=== PATIENT | female | born 1965 | race Hispanic/Latino ===

== ENCOUNTER 2016-08-21 10:24 | Inpatient (IN) | payer OTHER ==
[2016-08-21 11:34] LABS: Basophils % (Auto) 0.5 % (0.0-1.8); Eosinophils % (Auto) 0.1 % (0.0-4.3); Hematocrit 44.5 % (30.3-42.9); Hemoglobin 15.3 gm/dl (10.1-14.3); Mean Corpuscular HGB Conc 35 % (30-34); Mean Corpuscular Hemoglobin 34 pg (28-32); Mean Corpuscular Volume 99 fl (79-97); Platelet Count 248 K/mm3 (140-440); Red Blood Count 4.47 M/mm3 (3.65-5.03); Red Cell Distribution Width 14.5 % (13.2-15.2); White Blood Count 10.2 K/mm3 (4.5-11.0)
[2016-08-21 11:38] LABS: Anion Gap 24 mmol/L; Blood Urea Nitrogen 11 mg/dL (7-17); Calcium 8.9 mg/dL (8.4-10.2); Carbon Dioxide 22 mmol/L (22-30); Chloride 98.3 mmol/L (98-107); Glucose 143 mg/dL (65-100); Potassium 3.7 mmol/L (3.6-5.0); Sodium 141 mmol/L (137-145)
[2016-08-21] MEDS ORDERED: MORPHINE ONE (12:19)
[2016-08-21] MEDS ORDERED: ZOFRAN IV ONE (12:22)
[2016-08-21] MEDS ORDERED: MORPHINE IV ONE ×2 (12:23→16:50)
[2016-08-21] MEDS ORDERED: NACL ONE (12:23)
--- NOTE | 2016-08-21 12:53 | Cat Scan Report ---
CT SCAN OF THE ABDOMEN AND PELVIS WITH CONTRAST: HISTORY: Severe abdominal pain. COMPARISON: 07/28/15. TECHNIQUE: Helical CT in 1.25mm intervals following IV contrast. Sagittal and coronal reconstructions. FINDINGS: The liver is normal in size and contour. Approximate 1 cm right hepatic lobe hemangioma or cyst is unchanged. No gallstones or biliary dilatation are noted. The spleen and pancreas demonstrate a normal size and attenuation with no evidence of abnormal mass. The kidneys are normal in size and position with no evidence of hydronephrosis or mass. The adrenal glands are normal. The abdominal aorta is normal. There are a few borderline dilated and fluid filled loops of small bowel in the left abdomen. There is suggestion of a transition point along the anterior abdominal wall near the umbilicus. This could represent an adhesion. The remaining bowel loops are unremarkable. The appendix is not confidently identified. A left ovarian cyst measures 2.3 cm. The uterus and right ovary are unremarkable. There is no evidence of peritoneal air or fluid. There is no evidence of any abnormal masses or fluid collections within the pelvis. No adenopathy is identified. The bladder is normal. IMPRESSION: Finding suggestive of a low grade partial small bowel obstruction. Please correlate with the patient's clinical presentation. 2.3 cm left ovarian cyst.
[2016-08-21 13:00] LABS: Bilirubin,Urine NEG (Negative); Blood,Urine SM (Negative); Ketones,Urine 80 mg/dL (Negative); Leukocyte Esterase,Urine NEG (Negative); Mucus,Urine FEW /HPF; Nitrite,Urine NEG (Negative); Urobilinogen,Urine < 2.0 mg/dL (<2.0)
--- NOTE | 2016-08-21 13:53 | Admit Criteria Form ---
Admission Criteria Documentation: INTESTINAL OBSTRUCTION Clinical Indications for Admission to Inpatient Care (Place 'X' for any and all applicable criteria): Admission is indicated for ANY ONE of the following (1)(2)(3)(4)(5): [X]I. Partial bowel obstruction [ ]II. Complete bowel obstruction Extended stay beyond goal length of stay may be needed for(1)(4)(12(: [ ]a) Identified etiology (eg, hernia, volvulus, cancer with obstruction) requiring intervention [ ]b) Gallstone ileus [ ]c) Surgical intervention [ ]d) Acute comorbid illness (eg, electrolyte imbalance, hypovolemia, renal failure) The original [employer] content created by [employer] has been revised. The portions of the content which have been revised are identified through the use of italic text or in bold, and [facility] has neither reviewed nor approved the modified material. All other unmodified content is copyright [employer]. Please see references footnoted in the original [employer] edition 2016 Admission Criteria Met: Yes
[2016-08-21 14:54] LABS: Bacteria,Urine 1+ /HPF (Negative)
--- NOTE | 2016-08-21 15:01 | Emergency Department Report ---
ED Abdominal Pain HPI - General Chief Complaint: Abdominal Pain Stated Complaint: LT SIDE ABD PAIN Time Seen by Provider: 08/21/16 14:20 Source: patient, EMS, RN notes reviewed Mode of arrival: Ambulatory Limitations: No Limitations - History of Present Illness Initial Comments: 51-year-old female presents to the emergency department complaining of abdominal pain. Patient reports the acute onset of left-sided abdominal pain that awoke her from sleep at 3:00 this morning. Patient reports pain as twisting and a throbbing pain. Pain has been constant. She reports radiation of the pain towards the center of her abdomen. She also reports nausea and vomiting. There are no other complaints. MD Complaint: abdominal pain -: Sudden, During the night Time: 03:00 Location: [facility] Radiation: other (periumbilical) Migration to: no migration Severity: moderate Severity scale (0 -10): 5 Quality: other (twisting, throbbing) Consistency: constant Improves With: nothing Worsens With: nothing Associated Symptoms: nausea, vomiting - Related Data Home Medications Medication Instructions Recorded Confirmed Last Taken Citalopram [celeXA] 20 mg PO QDAY 07/28/15 08/21/16 07/27/15 Lisinopril/Hydrochlorothiazide 1 tab PO QDAY 07/28/15 08/21/16 07/27/15 [Zestoretic 20-25 mg] Allergies Allergy/AdvReac Type Severity Reaction Status Date / Time Penicillins Allergy Unknown Verified 07/28/15 02:57 Sulfa (Sulfonamide Allergy Unknown Verified 07/28/15 02:57 Antibiotics) ED Review of Systems ROS: Stated complaint: LT SIDE ABD PAIN Other details as noted in HPI Comment: All other systems reviewed and negative Gastrointestinal: abdominal pain, nausea, vomiting ED Past Medical Hx - Past Medical History Previous Medical History?: Yes Hx Hypertension: Yes Hx HIV: No Additional medical history: Perferated diverticulitis, abd. pain - Surgical History Past Surgical History?: Yes Additional Surgical History: colostomy and colostomy reversal - Family History Family history: no significant - Social History Smoking Status: Current Every Day Smoker Substance Use Type: Alcohol - Medications Home Medications: Home Medications Medication Instructions Recorded Confirmed Last Taken Type Citalopram [celeXA] 20 mg PO QDAY 07/28/15 08/21/16 07/27/15 History Lisinopril/Hydrochlorothiazide 1 tab PO QDAY 07/28/15 08/21/16 07/27/15 History [Zestoretic 20-25 mg] ED Physical Exam - General Limitations: No Limitations General appearance: alert, in no apparent distress - Head Head exam: Present: atraumatic, normocephalic - Eye Eye exam: Present: normal appearance, PERRL, EOMI - ENT ENT exam: Present: normal exam, normal orophraynx, mucous membranes moist - Neck Neck exam: Present: normal inspection, full ROM. Absent: tenderness - Respiratory Respiratory exam: Present: normal lung sounds bilaterally. Absent: respiratory distress - Cardiovascular Cardiovascular Exam: Present: regular rate, normal rhythm, normal heart sounds - GI/Abdominal GI/Abdominal exam: Present: soft, tenderness (mild tenderness to palpation of the left mid abdomen.), normal bowel sounds. Absent: distended, guarding, rebound - Extremities Exam Extremities exam: Present: normal inspection, full ROM. Absent: tenderness - Back Exam Back exam: Present: normal inspection, full ROM. Absent: tenderness - Neurological Exam Neurological exam: Present: alert, oriented X3. Absent: motor sensory deficit - Skin Skin exam: Present: warm, dry, intact ED Course Vital Signs 08/21/16 10:39 Temperature 98.1 F Pulse Rate 62 Respiratory 18 Rate Blood Pressure 192/92 O2 Sat by Pulse 100 Oximetry ED Medical Decision Making - Lab Data Result diagrams: 08/21/16 10:58 08/21/16 10:58 - Radiology Data Radiology results: report reviewed, image reviewed CT of the abdomen and pelvis reveals a partial small bowel obstruction with a transition point in the anterior abdomen near the umbilicus. - Medical Decision Making Lab and imaging results reviewed and discussed with the patient. Patient reports symptoms are somewhat improved with medication. Placing an NG tube. I have spoken with Dr. Milner, surgery. Patient is to be admitted by the hospitalist. - Differential Diagnosis abdominal pain, diverticulitis, obstruction Critical care attestation.: If time is entered above; I have spent that time in minutes in the direct care of this critically ill patient, excluding procedure time. ED Disposition Clinical Impression: Small bowel obstruction Disposition: OP ADMITTED IP TO THIS HOSP Is pt being admited?: Yes Condition: Stable Instructions: Abdominal Pain (ED) Referrals: PRIMARY CARE, [Primary Care Provider] - 3-5 Days Time of Disposition: 15:03
[2016-08-21] MEDS ORDERED: NACL 0.9% 1000 ML 1,000 ML IV ONE (15:51)
--- NOTE | 2016-08-21 18:16 | Event Note ---
Date: 08/21/16 See H/p in reports SBO HTN Depression/Anxiety Hx of Colostomy with reversal probably causing scar tissue and obstruction
[2016-08-21] MEDS ORDERED: CATAPRES-TTS PATCH TD SCH (18:30)
--- NOTE | 2016-08-21 18:56 | Consultation ---
History of Present Illness Consult date: 08/21/16 Reason for consult: abdominal pain Chief complaint: Abdominal pain. - History of present illness History of present illness: 51 years old female came to the hospital emergency room complaining of abdominal pain, nausea and vomiting. This started today about 3:00 in the morning. A CT of the abdomen showed small bowel obstruction. Past History Past Medical History: hypertension, other (had an episode of small bowel obstruction last year that resolved with conservative management.) Past Surgical History: bowel surgery (Carine's procedure for perforated diverticulitis and later takedown of colostomy.) Social history: no significant social history Medications and Allergies Allergies Allergy/AdvReac Type Severity Reaction Status Date / Time Penicillins Allergy Unknown Verified 07/28/15 02:57 Sulfa (Sulfonamide Allergy Unknown Verified 07/28/15 02:57 Antibiotics) Home Medications Medication Instructions Recorded Confirmed Last Taken Type Citalopram [celeXA] 20 mg PO QDAY 07/28/15 08/21/16 07/27/15 History Lisinopril/Hydrochlorothiazide 1 tab PO QDAY 07/28/15 08/21/16 07/27/15 History [Zestoretic 20-25 mg] Active Meds: Active Medications Clonidine HCl (Catapres-Tts Patch) 0.1 mg TD Tu OLVIN Hydromorphone HCl (Dilaudid) 1 mg IV Q3H PRN PRN Reason: Pain , Severe (7-10) Sodium Chloride (Nacl 0.9% 1000 Ml) 1,000 mls @ 125 mls/hr IV ONCE ONE Stop: 08/21/16 23:50 Last Admin: 08/21/16 16:49 Dose: 125 mls/hr Ondansetron HCl (Zofran) 4 mg IV NOW PRN PRN Reason: Nausea And Vomiting Review of Systems - Psychiatric depression Exam Vital Signs Temp Pulse Resp BP Pulse Ox 98.1 F 62 18 192/92 100 08/21/16 10:39 08/21/16 10:39 08/21/16 10:39 08/21/16 10:39 08/21/16 10:39 - General physical appearance Positive: well developed, well nourished, no distress - Eyes Positive: PERRL, normal occular movement - ENT Positive: normal pinna, normal nares, normal mucosa, no hearing loss, no congestion, other (NG in place through right nostril.) - Neck Positive: no masses, no bruits, trachea midline, no venous distension - Respiratory Positive: normal expansion, normal respiratory effort, clear to auscultation - Cardiovascular Rhythm: regular Heart Sounds: Present: S1 & S2 - Extremities Extremities: no ischemia Peripheral Pulses: within normal limits - Breasts Breasts: deferred - Abdomen Abdomen: Present: soft, bowel sounds normal Hernia: none - Genitourinary Female Genitourinary: normal - Integumentary no rash, no growths, no abnormal pigmentation - Neurologic Neurologic: alert and oriented to time, place and person, motor strength and sensation are grossly intact - Musculoskeletal normal gait, normal posture - Psychiatric Psychiatric: appropriate mood/affect, intact judgment & insight Results - Labs 08/21/16 10:58 08/21/16 10:58 - Imaging CT scan - pelvis: report reviewed, image reviewed US - abdomen: report reviewed, image reviewed Assessment and Plan Impression: #1. Small bowel obstruction. #2. Hypertension. Recommendations: Continue NG tube to low intermittent suction. Abdominal series in the morning. Repeat labs in the morning.
[2016-08-21] MEDS ORDERED: ZOFRAN IV PRN (18:57)
[2016-08-21] MEDS ORDERED: MILK OF MAGNESIA PO PRN (18:57)
[2016-08-21] MEDS ORDERED: TYLENOL PO PRN (18:57)
[2016-08-21] MEDS ORDERED: DULCOLAX PR PRN (19:07)
--- NOTE | 2016-08-21 19:53 | History and Physical Report ---
CHIEF COMPLAINT: Abdominal pain. HISTORY OF PRESENT ILLNESS: A 51-year-old female who comes to the Emergency Room complaining of left lower quadrant abdominal pain, radiation to the periumbilical region. The pain was sharp and about 10/10. Awoke her up from sleep around 3 a.m. in the morning. She also has nausea and vomiting. No exacerbating factors. Pain comes intermittently sharp and lasts for about few minutes. Crampy pain. The first episode. Throbbing pain. Nausea with vomiting x3-4 times. PAST MEDICAL HISTORY: Significant for hypertension, perforated diverticulitis in the past, abdominal pain, colostomy in the past. PAST SURGICAL HISTORY: Colostomy and colostomy reversal. FAMILY HISTORY: No hypertension. SOCIAL HISTORY: Current everyday smoker. Alcohol occasionally. CURRENT MEDICATIONS: Celexa 20 mg once a day, lisinopril/hydrochlorothiazide 20/25 daily. REVIEW OF SYSTEMS: CONSTITUTIONAL: No weight loss, no weight gain. No fever, no chills. HEENT: No sore throat. No postnasal drip. CVS AND RESPIRATORY: No shortness of breath, no chest pain, no palpitations. No cough, no wheezing, no sputum production. GI: As mentioned in history of present illness, left flank pain radiating to the periumbilical region, sharp in nature 10/10, associated with nausea and vomiting. GENITOURINARY: No dysuria, no flank pain. MUSCULOSKELETAL: No joint pains. No muscle pains. CENTRAL NERVOUS SYSTEM: No syncope, no seizures. No focal deficits. SKIN: No rashes. PSYCHIATRIC: No anxiety. No depression. HEMATOLOGIC AND LYMPHATIC: No lymphedema, no easy bruising. A 14-point review of systems was done. PHYSICAL EXAMINATION: GENERAL: Middle-aged female, cooperative during examination. VITAL SIGNS: Blood pressure is 121/51, temperature is 98.1, pulse is 77, respirations are 16, sats are 95% to 100%. HEENT: Unremarkable. Pupils equal and reactive. NECK: Supple, no lymphadenopathy, no thyromegaly. LUNGS: Clear to auscultation and percussion. Good air entry. CARDIOVASCULAR: S1, S2 heard. No gallop, no murmur, no rub. Apical impulse in left fifth intercostal space and midclavicular line. ABDOMEN: Soft and benign. No hepatosplenomegaly. No guarding, no rigidity. Hernial orifices are normal. Decreased bowel sounds at present, tender. No guarding, no rigidity. EXTREMITIES: Good pedal pulses. No pedal edema. CENTRAL NERVOUS SYSTEM: Alert and oriented x 4, nonfocal exam. SKIN: Normal. LABORATORY DATA: White count is 10,400, hemoglobin is 15.3, hematocrit is 44.5, platelets count 248,000. Sodium is 141, potassium is 3.7, chloride is 98.3, bicarbonate is 22, BUN and creatinine is 11 and 0.5, glucose is 143. Urine shows pH of 8.0, no infection. Abdominal CAT scan shows low-grade partial small-bowel obstruction. ASSESSMENT AND PLAN: 1. Partial small-bowel obstruction. NG tube to low grade suction. Surgery consulted. IV fluids in the meantime. 2. Hypertension, controlled. The patient is n.p.o. We will put her on [id number] patch, if necessary increase it to TTS-2 or TTS-3 patch depending on her blood pressure. 3. Depression. Celexa kept on hold. 4. Deep venous thrombosis prophylaxis, Lovenox 40 mg subcutaneous daily. JOB# [id number] VSM/NTS
[2016-08-21] MEDS ORDERED: D5NS 1,000 ML IV SCH (20:00)
[2016-08-21] MEDS: DILAUDID IV PRN (20:35)
[2016-08-21] MEDS: ZOFRAN IV PRN (20:35)
[2016-08-21] MEDS ORDERED: LOVENOX SUB-Q SCH (22:00)
[2016-08-22] MEDS: DILAUDID IV PRN ×3 (01:28→18:49)
[2016-08-22] MEDS: ZOFRAN IV PRN (01:28)
[2016-08-22 04:40] LABS: Hematocrit 40.6 % (30.3-42.9); Hemoglobin 13.4 gm/dl (10.1-14.3); Mean Corpuscular Volume 101 fl (79-97); Red Blood Count 4.02 M/mm3 (3.65-5.03); White Blood Count 8.2 K/mm3 (4.5-11.0)
[2016-08-22 04:41] LABS: Mean Corpuscular HGB Conc 33 % (30-34); Mean Corpuscular Hemoglobin 33 pg (28-32); Mean Platelet Volume 8.4 fl (6-12); Platelet Count 188 K/mm3 (140-440); Red Cell Distribution Width 14.7 % (13.2-15.2)
[2016-08-22 04:42] LABS: Basophils % (Auto) 0.3 % (0.0-1.8); Eosinophils % (Auto) 1.2 % (0.0-4.3)
[2016-08-22 06:05] LABS: Anion Gap 18 mmol/L; Carbon Dioxide 23 mmol/L (22-30); Chloride 97.6 mmol/L (98-107); Sodium 136 mmol/L (137-145)
[2016-08-22 06:06] LABS: Alanine Aminotransferase 14 units/L (7-56); Albumin 3.3 g/dL (3.9-5); Albumin/Globulin Ratio 1.4 %; Alkaline Phosphatase 65 units/L (35-129); Blood Urea Nitrogen 9 mg/dL (7-17); Calcium 7.6 mg/dL (8.4-10.2); Glucose 96 mg/dL (65-100); Total Protein 5.6 g/dL (6.3-8.2)
[2016-08-22 06:07] LABS: Potassium 2.7 mmol/L (3.6-5.0)
[2016-08-22] MEDS ORDERED: KCL 10MEQ/100ML 10 MEQ/100 ML BAG IV SCH (08:30)
--- NOTE | 2016-08-22 09:08 | Progress Note ---
Assessment and Plan 51 years old female came to the hospital emergency room complaining of abdominal pain, nausea and vomiting. A CT of the abdomen showed small bowel obstruction. SBO - Hx of Colostomy with reversal probably causing scar tissue and obstruction - Surgery following, NPO now with NG suction -She will have Small bowel series with gastrografin today HTN, benign essential - placed on as needed hydralazine IV Depression/Anxiety - no acute psych issue, celexa on hold as she is NPO Hypokalemia - replace with IV fluid GI and DVT prophylaxis Subjective Date of service: 08/22/16 Interval history: Patient seen and examined. Medical records and medication list reviewed. No acute event overnight noted by the RN. Patient denies any abdominal pain Discussed plan of care at bedside with patient. Objective - Exam Narrative Exam: GENERAL: well-developed obese WF lying on bed appeared to be in no discomfort. HEENT: Normocephalic. Atraumatic. No conjunctival congestion or icterus. Patient has moist mucous membranes. NECK: Supple. Trachea midline. CHEST/LUNGS: Clear to auscultated bilaterally, breathing nonlabored. No wheezes crackles or rhonchi. HEART/CARDIOVASCULAR: Regular in rate and rhythm. S1 and S2 positive. ABDOMEN: Abdomen is soft, nontender. Patient has hypoactive bowel sounds. SKIN: There is no rash. Warm and dry. NEURO: No focal motor deficit. Follows command. MUSCULOSKELETAL: No joint effusion or tenderness. EXTRIMITY: No edema, no cyanosis or clubbing. PSYCH: Cooperative. - Constitutional Vitals: Vital Signs - 12hr 08/21/16 23:50 Temperature 98.7 F Pulse Rate [ 58 L Right] Respiratory 20 Rate Blood Pressure 155/85 [Right Arm] O2 Sat by Pulse 95 Oximetry - Labs CBC & Chem 7: 08/22/16 03:55 08/22/16 03:55 Labs: Abnormal lab results 08/22/16 08/22/16 Range/Units 03:55 03:55 MCV 101 H (79-97) fl MCH 33 H (28-32) pg [place] % (Auto) 7.6 H (0.0-7.3) % Seg Neutrophils % 71.3 H (40.0-70.0) % Sodium 136 L (137-145) mmol/L Potassium 2.7 L* D (3.6-5.0) mmol/L Chloride 97.6 L (98-107) mmol/L Creatinine 0.6 L (0.7-1.2) mg/dL Calcium 7.6 L (8.4-10.2) mg/dL Total Protein 5.6 L (6.3-8.2) g/dL Albumin 3.3 L (3.9-5) g/dL
[2016-08-22] MEDS ORDERED: BENADRYL IV PRN (11:25)
--- NOTE | 2016-08-22 11:45 | XRay Report ---
ABDOMINAL SERIES INDICATION: Small bowel obstruction. COMPARISON: Yesterday's CT. FINDINGS: Abdominal series, 4 radiographs, demonstrate nonobstructive bowel gas pattern without focal suspicious calcifications, pneumatosis or pneumoperitoneum. Few pelvic phleboliths. Accompanying chest radiograph demonstrates top normal heart size. Clear lungs. Right hemidiaphragm slightly elevated. Esophagogastric tube tip seen about the mid esophagus, approximately 13 cm above the GE junction. Intact bones. CONCLUSION: No acute chest or abdominal radiographic abnormality, as described. Esophagogastric tube though suboptimally positioned and may either be removed or advanced by approximately 20 cm for more appropriate positioning, as warranted. Thank you for the opportunity to participate in this patient's care.
[2016-08-22] MEDS ORDERED: D5W/NS W/KCL 40MEQ 40 MEQ/1,000 ML BAG IV SCH (12:00)
--- NOTE | 2016-08-22 12:36 | Progress Note ---
Assessment and Plan IMP: Partial small bowel obstruction. PLAN: Advance NG tube about 20 cm. Small bowel series with gastrografin Subjective Date of service: 08/22/16 Patient Reports: Positive: still having pain, pain is less, voiding w/o difficulty, flatus, no bowel movement. Negative: vomiting Objective Vital Signs - 12hr 08/22/16 08:00 Temperature 97.9 F Pulse Rate [ 54 L Right] Respiratory 18 Rate Blood Pressure 133/69 [Right Arm] O2 Sat by Pulse 92 Oximetry - Abdomen soft, tender (periumbilical area.), bowel sounds normal - Labs 08/22/16 03:55 08/22/16 03:55 Diabetes panel 08/22/16 Range/Units 03:55 Sodium 136 L (137-145) mmol/L Potassium 2.7 L* D (3.6-5.0) mmol/L Chloride 97.6 L (98-107) mmol/L Carbon Dioxide 23 (22-30) mmol/L BUN 9 (7-17) mg/dL Creatinine 0.6 L (0.7-1.2) mg/dL Glucose 96 (65-100) mg/dL Calcium 7.6 L (8.4-10.2) mg/dL AST 17 (5-40) units/L ALT 14 (7-56) units/L Alkaline Phosphatase 65 (35-129) units/L Total Protein 5.6 L (6.3-8.2) g/dL Albumin 3.3 L (3.9-5) g/dL Calcium panel 08/22/16 Range/Units 03:55 Calcium 7.6 L (8.4-10.2) mg/dL Albumin 3.3 L (3.9-5) g/dL Pituitary panel 08/22/16 Range/Units 03:55 Sodium 136 L (137-145) mmol/L Potassium 2.7 L* D (3.6-5.0) mmol/L Chloride 97.6 L (98-107) mmol/L Carbon Dioxide 23 (22-30) mmol/L BUN 9 (7-17) mg/dL Creatinine 0.6 L (0.7-1.2) mg/dL Glucose 96 (65-100) mg/dL Calcium 7.6 L (8.4-10.2) mg/dL Adrenal panel 08/22/16 Range/Units 03:55 Sodium 136 L (137-145) mmol/L Potassium 2.7 L* D (3.6-5.0) mmol/L Chloride 97.6 L (98-107) mmol/L Carbon Dioxide 23 (22-30) mmol/L BUN 9 (7-17) mg/dL Creatinine 0.6 L (0.7-1.2) mg/dL Glucose 96 (65-100) mg/dL Calcium 7.6 L (8.4-10.2) mg/dL Total Bilirubin 0.40 (0.1-1.2) mg/dL AST 17 (5-40) units/L ALT 14 (7-56) units/L Alkaline Phosphatase 65 (35-129) units/L Total Protein 5.6 L (6.3-8.2) g/dL Albumin 3.3 L (3.9-5) g/dL - Imaging Abdominal x-ray: report reviewed, image reviewed
--- NOTE | 2016-08-22 16:09 | Fluoroscopy Report ---
Small bowel series: Abdominal pain. Recent abnormal CT for possible obstruction. Following the oral water-soluble contrast a 15 minute image demonstrates a significant amount of opacified but nondilated small bowel. On the 30 minute image the colon is partially visualized. On the 45 and image more of the colon is visualized. No evidence of dilated bowel currently noted. Impression: Rapid small bowel transit with no obstruction noted.
[2016-08-22 18:24] VITALS: BP 133/69
--- NOTE | 2016-08-22 22:51 | Event Note ---
Date: 08/22/16 Patient left AMA.
== END 2016-08-22 17:30 | disposition left against medical advice (07) | DRG 390 ==
LOC: ED 10:24 → 2B-SURG 15:04
PROVIDERS: ADMIT Internal Medicine; ATTEND Internal Medicine
DX: K56.60 Unspecified intestinal obstruction (principal); I10 Essential (primary) hypertension; F17.200 Nicotine dependence, unspecified, uncomplicated; F32.9 Major depressive disorder, single episode, unspecified; F41.9 Anxiety disorder, unspecified; E87.6 Hypokalemia; Z88.0 Allergy status to penicillin; Z88.2 Allergy status to sulfonamides; Z93.3 Colostomy status
CPT/HCPCS: 36415; 74022; 74177; 74250; 80048; 80053; 81001; 85025; 96361; 96374; 96375; 96376; J1170; J1200; J1650; J2270; J2405; J3480; J7030; Q9963; Q9967